=== PATIENT | female | born 1995 | race Caucasian/White ===

== ENCOUNTER 2018-07-10 23:56 | Emergency (ER) | payer OTHER ==
[~2018-07-10] VITALS: Ht 177.8 cm; Wt 97.5 kg
--- OUTSIDE RECORDS SUMMARY | 2018-07-10 23:59 | XMS REPORT ---
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 Allergies, Adverse Reactions, Alerts Allergy Name Allergy Type Status Severity Reaction(s) Onset Date Inactive Date Treating Clinician Comments ciprofloxacin DA Active SV 2018-02-04 00:00:00 cefdinir DA Active SV 2018-02-04 00:00:00 ciprofloxacin DA Active SV 2018-01-30 00:00:00 cefdinir DA Active SV 2018-01-30 00:00:00 Medications This patient has no known medications.
--- OUTSIDE RECORDS SUMMARY | 2018-07-10 23:59 | XMS REPORT | Encounter Summary ---
Author Organization Unknown Address [address] [place] [address] Phone [phone] Reason for Visit Medical Complaint Instructions 1. Acute upper respiratory infection upper respiratory infection (cold): care instructions rapid flu (A+B) Bromfed DM 2 mg-30 mg-10 mg/5 mL syrup 2. Acute tonsillitis tonsillitis: care instructions rapid strep group A, throat mononucleosis, heterophile Ab, blood culture, respiratory prednisone 20 mg tablet 3. Seasonal allergic rhinitis seasonal allergies: care instructions azelastine 137 mcg (0.1 %) nasal spray aerosol fluticasone 50 mcg/actuation nasal spray,suspension 4. Counseling HPV (human papillomavirus) vaccine Gardasil: what you need to know 5. Body mass index 25-29 - overweight body mass index: care instructions A healthy lifestyle: care instructions Discussion Note: None recorded. Plan of Care Reminders Provider Appointments None recorded. Lab Rapid Strep Group a, Throat 11/15/2017 [facility] Mononucleosis, Heterophile Ab, Blood 11/15/2017 [facility] Rapid Flu (A+B) 11/15/2017 [facility] Culture, Respiratory 11/15/2017 [facility] Referral None recorded. Procedures None recorded. Surgeries None recorded. Imaging None recorded. Medications Name Start Date azelastine 137 mcg (0.1 %) nasal spray aerosol [place] 2 sprays twice a day by intranasal route as directed for 30 days. Bromfed DM 2 mg-30 mg-10 mg/5 mL syrup Take 10 mL every 4-6 hours by oral route as needed for 5 days. fluticasone 50 mcg/actuation nasal spray,suspension [place] 1 spray every day by intranasal route as directed for 30 days. prednisone 20 mg tablet Take 1 tablet twice a day by oral route as needed for 3 days. Medications Administered None recorded. Vitals Height Weight BMI Blood Pressure 5 ft 9 in 198 lbs 29.2 kg/m2 116/74 mm[Hg] Lab Results Date Name Specimen Result Interpretation Description Value Range Status Address Rapid Flu (A+B) Influenza a negative [facility]: [facility] Influenza B negative [facility]: [facility] Mononucleosis, Heterophile Ab, Blood Result negative [facility]: [facility] Rapid Strep Group a, Throat Result negative [facility]: [facility] Swab Location Left and Right tonsillar pillars [facility]: [facility] Allergies Code Code System Name Reaction Severity Status Onset 953312 RxNorm Cipro Hives Active 05748 RxNorm Omnicef Hives Active Problems Name Status Onset Date Source Streptococcal Sore Throat Active Encounter Infective Otitis Externa Active Encounter Acute Otitis Media Active Encounter Has a Sore Throat Active Encounter Viral Pharyngitis Active Encounter Allergic Rhinitis Active Encounter Sunburn of Second Degree Active Encounter Cough Active Encounter Procedures None recorded. Vaccine List Vaccine Type meningococcal MCV4P 12/28/2013 Social History Smoking Status Never Smoker Past Encounters 11/15/2017 Acute Upper Respiratory Infection; Acute Tonsillitis; Seasonal Allergic Rhinitis; Counseling; Body Mass Index 25-29 - Overweight Betty Muñoz DIABETES NURSE: [address] [place] [address], Ph. History of Present Illness Throat-Oral Complaint Reported By: Patient HPI: Location: throat; sore throat swollen tonsils. Quality: congested. Severity: moderate. Duration: 7 days. Onset/Timing: gradual. Context: no sick contacts, no foreign travel, non-smoker, allergies. Modifying factors: OTC medication. Associated Symptoms: no fever, no headache, no body aches, no sputum production, no shortness of breath, no wheezing, no change in number of pillows needed to sleep at night, no sweats, no significant weight gain, no significant weight loss, no vomiting, no diarrhea, no rash, no nausea, morning cough, sore throat Review of Systems:ROS as noted in the HPI Review of Systems None recorded. Physical Exam Adult Basic Reported By: Patient Constitutional: General Appearance: healthy-appearing, well-nourished, well-developed, overweight. Level of Distress: mild distress. Ambulation: ambulating normally Psychiatric: Mental Status: active and alert. Orientation: to time, to place, to person Uil-Vqvl-Kiqbp-Throat: Nose: no lesions on external nose, nares patent, no septal deviation, nasal passages clear, no sinus tenderness, nasal discharge--rhinorrhea. Lips, Teeth, and Gums: no mouth or lip ulcers, no bleedin g gums, normal dentition. Oropharynx: moist mucous membranes, no exudates, erythema, tonsils enlarged 2+ Neck: Neck: supple, FROM. Lymph Nodes: no cervical LAD Lungs: Respiratory effort: no dyspnea, no tachypnea, no use of accessory muscles, no intercostal retractions. Auscultation: breath sounds normal Cardiovascular: Heart Auscultation: RRR, no murmurs Neurologic: Gait and Station: normal gait, normal station
--- OUTSIDE RECORDS SUMMARY | 2018-07-10 23:59 | XMS REPORT | Encounter Summary ---
Author Organization Unknown Address [address] [place] [address] Phone [phone] Reason for Visit Medical Complaint Instructions 1. Streptococcal sore throat rapid strep group A, throat strep throat: care instructions azithromycin 250 mg tablet 2. Body mass index 30+ - obesity starting a weight loss plan: care instructions 3. Exercises education, guidance, and counseling eating healthy foods: care instructions 4. Dietary management surveillance Discussion Note: None recorded. Plan of Care Patient Instructions Maintain good hand hygiene Discard old toothbrush 24 hours after initiation of antibiotics Use warm salt water gargles Please seek care (urgent care, ER) if symptoms worsen, you have stiff neck or severe Headache, new or worse trouble swallowing, sore throat gets worse on one side of your throat or pain worsens on one side. Reminders Provider Appointments None recorded. Lab Rapid Strep Group a, Throat 11/23/2016 [facility] Referral None recorded. Procedures None recorded. Surgeries None recorded. Imaging None recorded. Medications Name Start Date azithromycin 250 mg tablet TAKE 2 TABLETS (500 MG) BY ORAL ROUTE ONCE DAILY FOR 1 DAY THEN 1 TABLET (250 MG) BY ORAL ROUTE ONCE DAILY FOR 4 DAYS [place] Fe 06/08 (28) 1 mg-20 mcg (21)/75 mg (7) tablet TAKE 1 TABLET BY MOUTH EVERY DAY levocetirizine 5 mg tablet TAKE ONE (1) TABLET(S) BY MOUTH ONCE A DAY AT BEDTIME FOR 30 DAYS. ofloxacin 0.3 % ear drops Instill 10 drops every day by otic route as directed for 7 days. ofloxacin 0.3 % eye drops INSTILL 10 DROPS IN RIGHT EAR EVERY DAY DIRECTED FOR 7 DAYS. Medications Administered None recorded. Vitals Height Weight BMI Blood Pressure 5 ft 9 in 220 lbs 32.5 kg/m2 115/76 mm[Hg] Lab Results Date Name Specimen Result Interpretation Description Value Range Status Address Rapid Strep Group a, Throat Result positive [facility]: [address] [place] [address] Swab Location Left and Right tonsillar pillars [facility]: [address] [place] [address] Allergies Code Code System Name Reaction Severity Onset 13540 RxNorm Omnicef Hives Problems Name Status Onset Date Source Streptococcal Sore Throat Active Encounter Infective Otitis Externa Active Encounter Acute Otitis Media Active Encounter Has a Sore Throat Active Encounter Viral Pharyngitis Active Encounter Allergic Rhinitis Active Encounter Sunburn of Second Degree Active Encounter Cough Active Encounter Procedures None recorded. Vaccine List Vaccine Type meningococcal MCV4P 12/28/2013 Social History Smoking Status Never Smoker Past Encounters 11/23/2016 Streptococcal Sore Throat; Body Mass Index 30+ - Obesity; Exercises Education, Guidance, and Counseling; Dietary Management Surveillance Otoniel Barcenas, JODI-C: [address] [place] [address], Ph. History of Present Illness Throat-Oral Complaint Reported By: Patient HPI: Location: throat. Quality: sore throat. Severity: moderate. Duration: 21 days. Onset/Timing: sudden. Context: no sick contacts, no foreign travel, non-smoker, allergies. Modifying factors: OTC medication. Associated Symptoms: no fever, no headache, no body aches, no sputum production, no shortness of breath, no wheezing, no change in number of pillows needed to sleep at night, no sweats, no significant weight gain, no significant weight loss, no morning cough, no vomiting, no diarrhea, no rash, no nausea, fever, fatigue, sore throat Review of Systems:ROS as noted in the HPI Review of Systems Basic Reported By: Patient Physical Exam Adult Basic, Adult Female Complete Reported By: Patient Constitutional: General Appearance: healthy-appearing, well-nourished, well-developed. Level of Distress: NAD. Ambulation: ambulating normally Psychiatric: Mental Status: active and alert. Orientation: to time, to place, to person Lja-Rlee-Ojewi-Throat: Ears: no lesions on external ear, no outer ear tenderness, EACs clear, TMs clear. Hearing: no hearing loss. Nose: no lesions on external nose, nares patent, no septal deviation, nasal passages clear, no sinus tenderness, no nasal discharge. Lips, Teeth, and Gums: no mouth or lip ulcers, no bleeding gums, normal dentition. Oropharynx: moist mucous membranes, erythema, exudates, tonsils enlarged 2+ Neck: Lymph Nodes: no cervical LAD, no supraclavicular LAD Lungs: Respiratory effort: no dyspnea, no tachypnea, no use of accessory muscles, no intercostal retractions. Auscultation: breath sounds normal Cardiovascular: Heart Auscultation: RRR, no murmurs Neurologic: Gait and Station: normal gait, normal station
--- OUTSIDE RECORDS SUMMARY | 2018-07-10 23:59 | XMS REPORT | Encounter Summary ---
Author Organization Unknown Address [address] [place] [address] Phone [phone] Reason for Visit Medical Complaint Instructions 1. Cellulitis cellulitis: care instructions mupirocin 2 % topical ointment 2. Body mass index 30+ - obesity Discussion Note: None recorded. Plan of Care Reminders Provider Appointments None recorded. Lab None recorded. Referral None recorded. Procedures None recorded. Surgeries None recorded. Imaging None recorded. Medications Name Start Date mupirocin 2 % topical ointment APPLY A SMALL AMOUNT TO THE AFFECTED AREA BY TOPICAL ROUTE 3 TIMES PER DAY x 7-10 Medications Administered None recorded. Vitals Height Weight BMI Blood Pressure 5 ft 9 in 210 lbs 31 kg/m2 128/74 mm[Hg] Lab Results None recorded. 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 History of Present Illness Uzda-Ihofplf-Rrktz-Skin Lesion-Bite 1 Reported By: Patient HPI: Location: arms. Quality: itchy, painful, tender, red. Severity: worsening, mild. Duration: ; 1 day. Onset/Timing: abrupt onset. Context: no new detergents or skin products, no one else with similar rash, no sting or bite; unsure if it is an insect bite. Aggravating factors: nothing makes it worse. Associated Symptoms: no fever/chills, no muscle aches, no headache, no cold symptoms, no nausea, no vomiting, no diarrhea, no urinary symptoms Review of Systems:ROS as noted in the HPI Review of Systems None recorded. Physical Exam Adult Basic Reported By: Patient Constitutional: General Appearance: obese. Level of Distress: NAD. Ambulation: ambulating normally Psychiatric: Mental Status: active and alert. Orientation: to time, to place, to person Eue-Nrxj-Yejrn-Throat: Oropharynx: moist mucous membranes, no erythema, no exudates, tonsils not enlarged Neck: Neck: supple, FROM. Lymph Nodes: no cervical LAD Lungs: Respiratory effort: no dyspnea, no tachypnea, no use of accessory muscles, no intercostal retractions. Auscultation: breath sounds normal Cardiovascular: Heart Auscultation: RRR, no murmurs Skin: Inspection and palpation: no rash, no ulcer, no abnormal nevi, no induration, no nodules, good turgor, no jaundice, lesion
--- OUTSIDE RECORDS SUMMARY | 2018-07-10 23:59 | XMS REPORT | Continuity of Care Document ---
Author Author [facility] Interface Address Unknown Phone Unavailable Problems Problem Status Onset Date Classification Date Reported Comments Source Body mass index 25-29 - overweight 11/15/2017 Diagnosis 11/15/2017 [facility] Counseling 11/15/2017 Diagnosis 11/15/2017 [facility] Seasonal allergic rhinitis 11/15/2017 Diagnosis 11/15/2017 [facility] Acute tonsillitis 11/15/2017 Diagnosis 11/15/2017 [facility] Acute upper respiratory infection 11/15/2017 Diagnosis 11/15/2017 [facility] Nasal congestion 08/02/2017 Diagnosis 08/02/2017 [facility] Acute sinusitis 08/02/2017 Diagnosis 08/02/2017 [facility] Body mass index 30+ - obesity 08/02/2017 Diagnosis 08/02/2017 [facility] Cellulitis 02/19/2017 Diagnosis 02/20/2017 [facility] Productive cough 12/06/2016 Diagnosis 12/06/2016 [facility] Streptococcal sore throat 11/23/2016 Diagnosis 12/06/2016 [facility] Exercises education, guidance, and counseling 11/23/2016 Diagnosis 12/06/2016 [facility] Dietary management surveillance 11/23/2016 Diagnosis 12/06/2016 [facility] Infective otitis externa 04/04/2016 Diagnosis 04/04/2016 [facility] Allergic rhinitis 04/04/2016 Diagnosis 04/04/2016 [facility] Sunburn of second degree 11/11/2015 Diagnosis 11/11/2015 [facility] Streptococcal Sore Throat Problem 11/15/2017 [facility] Acute Otitis Media Problem 11/15/2017 [facility] Has a Sore Throat Problem 11/15/2017 [facility] Viral Pharyngitis Problem 11/15/2017 [facility] Allergic Rhinitis Problem 11/15/2017 [facility] Sunburn of Second Degree Problem 11/15/2017 [facility] Cough Problem 11/15/2017 [facility] Infective Otitis Externa Problem 11/15/2017 [facility] Medications Medication Details Route Status Patient Instructions Ordering Provider Order Date Source Medrol (Thomas) 4 mg tablets in a dose pack Medrol (Thomas) 4 mg tablets in a dose pack Take by oral route as directed Active [facility] silver sulfadiazine 10 MG/ML Topical Cream [Silvadene] Silvadene 1 % topical cream APPLY A 1/16 INCH (1.5 MM) THICK LAYER TO ENTIRE BURN AREA BY TOPICALROUTE 2 TIMES PER DAY Active [facility] Blisovi Fe 06/08 (28) 1 mg-20 mcg (21)/75 mg (7) tablet [place] Fe 20 (28) 1 mg-20 mcg (21)/75 mg (7) tablet TAKE 1 TABLET BY MOUTH EVERY DAY Active [facility] Ofloxacin 3 MG/ML Otic Solution ofloxacin 0.3 % ear drops Instill 10 drops every day by otic route as directed for 7 days. Active [facility] levocetirizine dihydrochloride 5 MG Oral Tablet [Xyzal] Xyzal 5 mg tablet Take 1 tablet every day by oral route at bedtime for 30 days. Active [facility] Mupirocin 0.02 MG/MG Topical Ointment mupirocin 2 % topical ointment APPLY A SMALL AMOUNT TO THE AFFECTED AREA BY TOPICAL ROUTE 3 TIMES PER DAY x 7-10 Active [facility] Clarithromycin 500 MG Oral Tablet clarithromycin 500 mg tablet Take 1 tablet twice a day by oral route as directed for 10 days. Active [facility] Xyzal Xyzal Active [facility] Brompheniramine Maleate 0.4 MG/ML / Dextromethorphan Hydrobromide 2 MG/ML / Pseudoephedrine Hydrochloride 6 MG/ML Oral Solution [Bromfed DM] Bromfed DM 2 mg-30 mg-10 mg/5 mL syrup Take 10 mL every 4-6 hours by oral route as needed for 5 days. Active [facility] Penicillin V Potassium 500 MG Oral Tablet penicillin V potassium 500 mg tablet Take 1 tablet twice a day by oral route as directed for 10 days. Active [facility] Azithromycin 250 MG Oral Tablet azithromycin 250 mg tablet TAKE 2 TABLETS (500 MG) BY ORAL ROUTE ONCE DAILY FOR 1 DAY THEN 1 TABLET (250 MG) BY ORAL ROUTE ONCE DAILY FOR 4 DAYS Active [facility] levocetirizine dihydrochloride 5 MG Oral Tablet levocetirizine 5 mg tablet TAKE ONE (1) TABLET(S) BY MOUTH ONCE A DAY AT BEDTIME FOR 30 DAYS. Active [facility] Ofloxacin 3 MG/ML Ophthalmic Solution ofloxacin 0.3 % eye drops INSTILL 10 DROPS IN RIGHT EAR EVERY DAY DIRECTED FOR 7 DAYS. Active [facility] Azelastine hydrochloride 0.137 MG/ACTUAT Metered Dose Nasal [place] azelastine 137 mcg (0.1 %) nasal spray aerosol [place] 2 sprays twice a day by intranasal route as directed for 30 days. Active [facility] Fluticasone propionate 0.05 MG/ACTUAT Metered Dose Nasal [place] fluticasone 50 mcg/actuation nasal spray,suspension [place] 1 spray every day by intranasal route as directed for 30 days. Active [facility] Prednisone 20 MG Oral Tablet prednisone 20 mg tablet Take 1 tablet twice a day by oral route as needed for 3 days. Active [facility] Allergies, Adverse Reactions, Alerts Substance Category Reaction Severity Reaction type Status Date Reported Comments Source Omnicef Hives Allergy to substance 07/29/2015 [facility] Cipro Hives Allergy to substance 08/02/2017 [facility] Immunizations Immunization Date Given Site Status Last Updated Comments Source meningococcal MCV4P 12/28/2013 completed [facility] Results Order Name Results Value Reference Range Date Interpretation Comments Source Influenza A negative 11/15/2017 [facility] Influenza B negative 11/15/2017 [facility] RESULT negative 11/15/2017 [facility] RESULT negative 11/15/2017 [facility] SWAB LOCATION Left and Right tonsillar pillars 11/15/2017 [facility] Influenza A negative 08/02/2017 [facility] Influenza B negative 08/02/2017 [facility] RESULT negative 08/02/2017 [facility] SWAB LOCATION Left and Right tonsillar pillars 08/02/2017 [facility] RESULT positive 12/06/2016 [facility] SWAB LOCATION Left and Right tonsillar pillars 12/06/2016 [facility] RESULT positive 12/06/2016 [facility] SWAB LOCATION Left and Right tonsillar pillars 12/06/2016 [facility] RESULT positive 11/23/2016 [facility] SWAB LOCATION Left and Right tonsillar pillars 11/23/2016 [facility] Vital Signs Vital Sign Value Date Comments Source Diastolic (mm Hg) 74 11/15/2017 [facility] Height 69 11/15/2017 [facility] Systolic (mm Hg) 116 11/15/2017 [facility] Weight 198 11/15/2017 [facility] Diastolic (mm Hg) 62 08/02/2017 [facility] Height 69 08/02/2017 [facility] Systolic (mm Hg) 118 08/02/2017 [facility] Weight 210 08/02/2017 [facility] Diastolic (mm Hg) 74 02/19/2017 [facility] Height 69 02/19/2017 [facility] Systolic (mm Hg) 128 02/19/2017 [facility] Weight 210 02/19/2017 [facility] Diastolic (mm Hg) 70 12/06/2016 [facility] Height 69 12/06/2016 [facility] Systolic (mm Hg) 136 12/06/2016 [facility] Weight 220 12/06/2016 [facility] Diastolic (mm Hg) 76 11/23/2016 [facility] Height 69 11/23/2016 [facility] Systolic (mm Hg) 115 11/23/2016 [facility] Weight 220 11/23/2016 [facility] Diastolic (mm Hg) 74 04/04/2016 [facility] Height 69 04/04/2016 [facility] Systolic (mm Hg) 112 04/04/2016 [facility] Weight 223 04/04/2016 [facility] Diastolic (mm Hg) 75 11/11/2015 [facility] Height 69 11/11/2015 [facility] Systolic (mm Hg) 120 11/11/2015 [facility] Weight 220 11/11/2015 [facility] Encounters Location Location Details Encounter Type Encounter Number Reason For Visit Attending Provider ADM Date DC Date Status Source [place] [facility] Angelica Rivera PA-C: [address] [place] [address], Ph. [phone] [id number] Angelica Rivera 11/11/2015 [facility] [place] [facility] Betty Muñoz, DESKTOP PUBLISHING SPECIALIST: [address] [place] [address], Ph. [id number] Betty Muñoz 04/04/2016 [facility] [place] [facility] DAYA DuttonP-C: [address] [facility] [address], Ph. [id number] [facility] 11/23/2016 [facility] [place] [facility] Otoniel Barcenas, SOCIAL WORK NURSE-C: [address] [facility] [address], Ph. [id number] [facility] 11/23/2016 [facility] [place] [facility] Vera Toni, DESKTOP PUBLISHING SPECIALIST: [address] [facility] [address], Ph. [id number] Vera Toni 12/06/2016 [facility] [place] [facility] Vera Toni, DESKTOP PUBLISHING SPECIALIST: [address] [facility] [address], Ph. [id number] Vera Toni 02/19/2017 [facility] [place] [facility] Vera Toni, DESKTOP PUBLISHING SPECIALIST: [address] [facility], [facility], Ph. [id number] Vera Toni 08/02/2017 [facility] [place] [facility] Vera Toni, DESKTOP PUBLISHING SPECIALIST: [address] [place] [address], Ph. [id number] Vera Toni 11/15/2017 [facility] Procedures Procedure Code Date Perfomer Comments Source
--- OUTSIDE RECORDS SUMMARY | 2018-07-10 23:59 | XMS REPORT | Encounter Summary ---
Author Organization Unknown Address [address] [place] [address] Phone [phone] Reason for Visit Medical Complaint; right earache x's 2 days Instructions 1. Infective otitis externa ofloxacin 0.3 % ear drops swimmer's ear: care instructions 2. Allergic rhinitis allergies: care instructions Xyzal 5 mg tablet Discussion Note: None recorded. Plan of Care Patient Instructions REST, DRINK PLENTY OF FLUID, CAN DRINK PEDIALYTE FOR ORAL REHYDRATION. F/U IF YOUR SYMPTOMS DO NOT IMPROVE. GO TO ER IF YOUR SYMPTOMS GET WORSE Reminders Provider Appointments None recorded. Lab None recorded. Referral None recorded. Procedures None recorded. Surgeries None recorded. Imaging None recorded. Medications Name Start Date [facility] 06/08 (28) 1 mg-20 mcg (21)/75 mg (7) tablet ofloxacin 0.3 % ear drops Instill 10 drops every day by otic route as directed for 7 days. Xyzal 5 mg tablet Take 1 tablet every day by oral route at bedtime for 30 days. Medications Administered None recorded. Vitals Height Weight BMI Blood Pressure 5 ft 9 in 223 lbs 32.9 112/74 Lab Results None recorded. 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 History of Present Illness Ear Complaint Reported By: Patient HPI: Location: right, pain inside ear. Quality: ears feel full/plugged, throbbing, aching. Duration: intermittent; 4 days. Onset/Timing: still present. Context: no sick contacts, no recent swimming/water in ear, no exposure to second hand smoke, no head trauma, not grinding teeth, no recent air travel. Modifying factors: does not hurt to chew, hurts to lie on, or pull on ear, OTC medication. Associated Symptoms: no discharge from the ears, no nose/sinus problems, no popping noise in the ears, no ringing in the ears, no fever, no chills, no dizziness, no vertigo, no headache Review of Systems Basic Reported By: Patient Constitutional: Constitutional: no fever Physical Exam Adult Basic Constitutional: General Appearance: healthy-appearing, well-nourished, well-developed. Level of Distress: NAD. Ambulation: ambulating normally Psychiatric: Mental Status: active and alert. Orientation: to time, to place, to person Cjb-Biif-Tytce-Throat: Ears: no lesions on external ear, EACs clear, TMs clear, outer ear tenderness. Hearing: no hearing loss. Nose: no lesions on external nose, nares patent, no septal deviation, nasal passages clear, no sinus tenderness, post nasal drip. Lips, Teeth, and Gums: no mouth or lip ulcers, no bleeding gums, normal dentition. Oropharynx: moist mucous membranes, no erythema, no exudates, tonsils not enlarged Neck: Neck: FROM Lungs: Respiratory effort: no dyspnea, no tachypnea, no use of accessory muscles, no intercostal retractions. Auscultation: breath sounds normal Cardiovascular: Heart Auscultation: RRR, no murmurs Neurologic: Gait and Station: normal gait, normal station
--- OUTSIDE RECORDS SUMMARY | 2018-07-10 23:59 | XMS REPORT | Encounter Summary ---
Author Organization Unknown Address [address] [place] [address] Phone [phone] Reason for Visit Medical Complaint Instructions 1. Acute tonsillitis tonsillitis: care instructions rapid strep group A, throat rapid flu (A+B) clarithromycin 500 mg tablet 2. Body mass index 30+ - obesity 3. Acute sinusitis sinusitis: care instructions 4. Nasal congestion Discussion Note: None recorded. Plan of Care Reminders Provider Appointments None recorded. Lab Rapid Strep Group a, Throat 08/02/2017 [facility] Rapid Flu (A+B) 08/02/2017 [facility] Referral None recorded. Procedures None recorded. Surgeries None recorded. Imaging None recorded. Medications Name Start Date clarithromycin 500 mg tablet Take 1 tablet twice a day by oral route as directed for 10 days. Xyzal Medications Administered None recorded. Vitals Height Weight BMI Blood Pressure 5 ft 9 in 210 lbs 31 kg/m2 118/62 mm[Hg] Lab Results Date Name Specimen Result Interpretation Description Value Range Status Address Rapid Flu (A+B) Influenza a negative [facility]: [address] [place] [address] Influenza B negative [facility]: [address] [place] [address] Rapid Strep Group a, Throat Result negative [facility]: [address] [place] [address] Swab Location Left and Right tonsillar pillars [facility]: [address] [place] [address] Allergies Code Code System Name Reaction Severity Status Onset 940573 RxNorm Cipro Hives Active 32238 RxNorm Omnicef Hives Active Problems Name Status [...] History Smoking Status Never Smoker Past Encounters 08/02/2017 Acute Tonsillitis; Body Mass Index 30+ - Obesity; Acute Sinusitis; Nasal Congestion Betty Muñoz MATERIALS DIRECTOR: [address] [place] [address], Ph. History of Present Illness [id number]-Rqfzt-Wyb Reported By: Patient HPI: Quality: symptoms worse during the day. Duration: 3 days. Onset/Timing: first recorded 1 day ago. Context: no ill contacts, no tick/insect bites, no recent travel, no new medications. Associated Symptoms: no headache, no rash, no lethargy, fever/chills, muscle aches, nasal passage blockage (stuffiness), nasal discharge; sore throat ear pressure painful swallowing Review of Systems:ROS as noted in the HPI Review of Systems None recorded. Physical Exam Adult Basic Reported By: Patient Constitutional: General Appearance: healthy-appearing, well-nourished, well-developed, overweight. Level of Distress: NAD. Ambulation: ambulating normally Psychiatric: Mental Status: active and alert. Orientation: to time, to place, to person Wlj-Rgxx-Hmszx-Throat: Ears: no lesions on external ear, no outer ear tenderness, EACs clear, TMs clear. Hearing: no hearing loss. Nose: no lesions on external nose, nares patent, no septal deviation, nasal passages clear, no nasal discharge, sinus tenderness. Lips, Teeth, and Gums: no mouth or lip ulcers, no bleeding gums, normal dentition; cut on the right upper gum. Oropharynx: moist mucous membranes, erythema, exudates, tonsils enlarged 3+ Neck: Neck: supple, FROM. Lymph Nodes: anterior cervical LAD Lungs: Respiratory effort: no dyspnea, no tachypnea, no use of accessory muscles, no intercostal retractions. Auscultation: breath sounds normal Cardiovascular: Heart Auscultation: RRR, no murmurs Musculoskeletal:: Motor Strength and Tone: normal motor strength, normal tone. Joints, Bones, and Muscles: normal movement of all extremities
--- OUTSIDE RECORDS SUMMARY | 2018-07-10 23:59 | XMS REPORT | Encounter Summary ---
Author Organization Unknown Address [address] [place] [address] Phone [phone] Reason for Visit Medical Complaint; sunburn on both legs x's 5 days Instructions 1. Sunburn of second degree Silvadene 1 % topical cream sunburn in teens: care instructions Medrol (Thomas) 4 mg tablets in a dose pack Discussion Note: None recorded. Plan of Care Patient Instructions Please add an antihistamine (Claritin, Zyrtec or Keshia) and/or Benadryl at night to help with the itching and swelling. Please seek care (PCP, Urgent Care, ER) [facility] symptoms get worse or do not resolve in 1 week. Reminders Provider Appointments None recorded. Lab None recorded. Referral None recorded. Procedures None recorded. Surgeries None recorded. Imaging None recorded. Medications Name Start Date Medrol (Thomas) 4 mg tablets in a dose pack Take by oral route as directed Silvadene 1 % topical cream APPLY A 1/16 INCH (1.5 MM) THICK LAYER TO ENTIRE BURN AREA BY TOPICALROUTE 2 TIMES PER DAY Medications Administered None recorded. Vitals Height Weight BMI Blood Pressure 5 ft 9 in 220 lbs 32.5 120/75 Lab Results None recorded. Allergies Name Reaction Severity Onset Omnicef Hives Problems Name Status Onset Date Source Streptococcal Sore Throat Active Encounter Acute Otitis Media Active Encounter Has a Sore Throat Active Encounter Viral Pharyngitis Active Encounter Allergic Rhinitis Active Encounter Sunburn of Second Degree Active Encounter Cough Active Encounter Procedures None recorded. Vaccine List Vaccine Type meningococcal [id number] 12/28/2013 Social History Smoking Status Never Smoker Past Encounters 11/11/2015 Sunburn of Second Degree Angelica Rivera PA-C: [address] [place] [address], Ph. History of Present Illness Suae-Moamnbz-Uvfnf-Skin Lesion-Bite 1 Reported By: Patient HPI: Location: face, arms, legs. Quality: painful, swollen. Severity: worsening. Duration: has noted for <1 week. Onset/Timing: abrupt onset. Context: no new detergents or skin products, no one else with similar rash, no sting or bite, sun exposure. Associated Symptoms: no fever, no cold symptoms, no nausea, no vomiting, no diarrhea, no urinary symptoms Review of Systems Basic Reported By: Patient Constitutional: Constitutional: no fever Eyes: Eyes: no eye complaints Zupb-Yfcr-Retnk-Throat: Ears: no ear complaints. Nose: no nose/sinus problems. Mouth/Throat: no sore throat, no bleeding gums, no mouth complaints, no teeth problems Cardiovascular: Cardiovascular: no chest pain, no shortness of breath, no known heart murmur Respiratory: Respiratory: no cough, no wheezing, no shortness of breath Gastrointestinal: Gastrointestinal: no abdominal pain, no vomiting / diarrhea Skin: Skin: no abnormal / changing mole, no jaundice, rash Physical Exam Adult Basic, Adult Female Complete, 14-21 Yr Females, Expanded Skin Exam 1 Constitutional: General Appearance: healthy-appearing, well-nourished, well-developed. Level of Distress: NAD. Ambulation: ambulating normally Psychiatric: Orientation: to time, to place, to person Lungs: Respiratory effort: no dyspnea, no tachypnea, no use of accessory muscles, no intercostal retractions. Percussion: no dullness, flatness, or hyperresonance, no dullness, no hyperresonance, no tympany. Auscultation: breath sounds normal, clear to auscultation, no wheezing, no rales/crackles, no rhonchi, no retractions Cardiovascular: Heart Auscultation: RRR, no murmurs, no gallops, no rub. Neck vessels: no carotid bruits. Pulses including femoral / pedal: normal throughout. Apical impulse: not displaced. Rate and rhythm: regular Neurologic: Mental Status: active and alert, normal affect, normal mood Skin: Rash / Lesion description morphology: vesicle 5mm, location: on the upper extremities, location: on the lower extremities
--- OUTSIDE RECORDS SUMMARY | 2018-07-10 23:59 | XMS REPORT | Encounter Summary ---
Author Organization Unknown Address [address] [place] [address] Phone [phone] Reason for Visit Medical Complaint Instructions 1. Streptococcal sore throat rapid strep group A, throat strep throat: care instructions penicillin V potassium 500 mg tablet 2. Productive cough Bromfed DM 2 mg-30 mg-10 mg/5 mL syrup cough: care instructions Discussion Note: None recorded. Plan of Care Reminders Provider Appointments None recorded. Lab Rapid Strep Group a, Throat 12/06/2016 [facility] Referral None recorded. Procedures None recorded. Surgeries None recorded. Imaging None recorded. Medications Name Start Date Bromfed DM 2 mg-30 mg-10 mg/5 mL syrup Take 10 mL every 4 hours by oral route as needed for 5 days. penicillin V potassium 500 mg tablet Take 1 tablet twice a day by oral route as directed for 10 days. Medications Administered None recorded. Vitals Height Weight BMI Blood Pressure 5 ft 9 in 220 lbs 32.5 kg/m2 136/70 mm[Hg] Lab Results Date Name Specimen Result Interpretation Description Value Range Status Address Rapid Strep Group a, Throat Result positive [facility]: [address] [place] [address] Swab Location Left and Right tonsillar pillars [facility]: [address] [place] [address] Rapid Strep Group a, Throat Result positive [facility]: [address] [place] [address] Swab Location Left and Right tonsillar pillars [facility]: [address] [place] [address] Allergies Code Code System Name Reaction Severity Onset 22332 RxNorm Omnicef Hives Problems Name Status Onset [...] History Smoking Status Never Smoker Past Encounters 12/06/2016 Streptococcal Sore Throat; Productive Cough Betty Muoñz OPERATOR ASSISTANT I CEMENTING: [address] [place] [address], Ph. 11/23/2016 Streptococcal Sore Throat; Body Mass Index 30+ - Obesity; Exercises Education, Guidance, and Counseling; Dietary Management Surveillance [place] Dutton: [address] [facility] [place] [address], Ph. History of Present Illness Throat-Oral Complaint Reported By: Patient HPI: Location: throat. Quality: sore throat, productive cough. Severity: pain level 3/10. Duration: 14 days. Onset/Timing: gradual. Context: no sick contacts, no foreign travel, non-smoker. Modifying factors: OTC medication. Associated Symptoms: no fever, no headache, no body aches, no sputum production, no shortness of breath, no wheezing, no change in number of pillows needed to sleep at night, no sweats, no significant weight gain, no significant weight loss, no vomiting, no diarrhea, no rash, no nausea, fever, fatigue, morning cough, sore throat Review of Systems:ROS as noted in the HPI Review of Systems None recorded. Physical Exam Adult Basic Reported By: Patient Constitutional: General Appearance: obese. Level of Distress: mild distress. Ambulation: ambulating normally Psychiatric: Mental Status: active and alert. Orientation: to time, to place, to person Ipq-Vupk-Kkigb-Throat: Ears: no lesions on external ear, no [...]
[2018-07-11] MEDS ORDERED: ONDANSETRON HCL INJ 2MG/ML 2ML 2 MG/ML VIAL IV STA (00:08)
[2018-07-11] MEDS ORDERED: SODIUM CHLORIDE 0.9% 1000ML 1,000 ML IV SCH (00:15)
[2018-07-11 02:07] VITALS: BP 118/74
== END 2018-07-11 02:44 | disposition home or self-care (01) ==
LOC: FSED 23:56
DX: O21.1 Hyperemesis gravidarum with metabolic disturbance (principal); Z3A.21 21 weeks gestation of pregnancy; E86.0 Dehydration
CPT/HCPCS: 81003; 81025; 99283

== ENCOUNTER 2018-08-15 15:41 | Emergency (ER) | payer OTHER ==
[~2018-08-15] VITALS: Ht 177.8 cm; Wt 97.5 kg
--- OUTSIDE RECORDS SUMMARY | 2018-08-15 15:44 | XMS REPORT | Continuity of Care Document ---
Author Author [facility] Interface Address Unknown Phone Unavailable Problems Problem [...] at bedtime for 30 days. Active [facility] Clarithromycin 500 MG Oral Tablet clarithromycin 500 mg tablet Take 1 tablet twice a day by oral route as directed for 10 days. Active [facility] Xyzal Xyzal Active [facility] Mupirocin 0.02 MG/MG Topical Ointment mupirocin 2 % topical ointment APPLY A SMALL AMOUNT TO THE AFFECTED AREA BY TOPICAL ROUTE 3 TIMES PER DAY x 7-10 Active [facility] Azithromycin 250 MG Oral Tablet [...] DAY DIRECTED FOR 7 DAYS. Active [facility] Brompheniramine Maleate 0.4 MG/ML / [...] as directed for 10 days. Active [facility] Azelastine hydrochloride 0.137 MG/ACTUAT Metered Dose Nasal Wynne azelastine 137 mcg (0.1 %) nasal spray aerosol Wynne 2 sprays twice a day by intranasal route as directed for 30 days. Active [facility] Fluticasone propionate 0.05 MG/ACTUAT Metered Dose Nasal [place] fluticasone 50 mcg/actuation nasal spray,suspension Wyn[place] 1 spray every day by intranasal route [...] [facility] Angelica Rivera PA-C: [address] [place] [address], Ph. [phone] [id number] Angelica Rivera 11/11/2015 [facility] [place] [facility] Betty Muñoz, PUMP OILER: [address] [place] [address], Ph. [id number] Betty Muñoz 04/04/2016 [facility] [place] [facility] DAYA DuttonP-C: [address] [place] [address], Ph. [id number] [facility] 11/23/2016 [facility] [place] [facility] Otoniel Barcenas, DOOR TO DOOR LEAD GENERATION-C: [address] [place] [address], Ph. [id number] [facility] 11/23/2016 [facility] [place] [facility] Vera Toni, PUMP OILER: [address] [place] [address], Ph. [id number] Vera Toni 12/06/2016 [facility] [place] [facility] Vera Toni, PUMP OILER: [address] [place] [address], Ph. [id number] Vera Toni 02/19/2017 [facility] [place] [facility] Vera Toni, PUMP OILER: [address] [place] [id number], Ph. [id number] Vera Toni 08/02/2017 [facility] [place] [facility] Vera Toni, PUMP OILER: [address] [place] [address], Ph. [id number] Vera Toni 11/15/2017 [facility] Procedures Procedure Code Date Perfomer Comments Source
--- NOTE | 2018-08-15 18:22 | Diagnostic Imaging Report ---
EXAM: Unilateral Lower Extremity Venous Duplex Ultrasound INDICATION: Knee pain ^[id number] ^[id number] COMPARISON: None TECHNIQUE: Stephen scale, color Doppler and spectral waveform analysis of the left lower extremity deep venous system was performed. Images are somewhat compromised due to patient's body habitus. FINDINGS: Common Femoral: Fully compressible with normal spontaneous waveforms. Proximal Greater Saphenous: Fully compressible. Femoral: Fully compressible with normal spontaneous waveforms. Normal response to augmentation. Proximal Deep Femoral: Normal spontaneous waveforms. Popliteal: Fully compressible with normal spontaneous waveforms. Anterior and posterior tibial veins: Visualized portions are fully compressible with normal spontaneous waveforms. IMPRESSION: No evidence of deep venous thrombosis above the left calf. Signed by: Dr. Milena Aparicio MD on 08/15/2018 6:19 PM
== END 2018-08-15 18:14 | disposition home or self-care (01) ==
LOC: FSED 15:41
DX: M76.9 Unspecified enthesopathy, lower limb, excluding foot (principal)
CPT/HCPCS: 93971; 99283